=== PATIENT | female | born 1975 | race Caucasian/White ===

== ENCOUNTER → 2023-08-21 14:19 | Outpatient (REF) | payer OTHER, SELFPAY ==
[2023-08-22 15:51] LABS: Mumps Virus IgG Positive; Rubeola (Measles) IgG Positive; Varicella Zoster IgG (VZV) Positive
[2023-08-22 20:23] LABS: Rubella Positive
== END ==
LOC: OHS 14:19
PROVIDERS: ATTENDING PHYSICIAN Nurse Practitioner Family
DX: Z23 Encounter for immunization (principal)
CPT/HCPCS: 36415; 86735; 86762; 86765; 86787